=== PATIENT | male | born 1970 | race Two or more races ===

== ENCOUNTER 2023-02-25 14:04 | Inpatient (IN) | payer OTHER ==
[~2023-02-25] VITALS: Ht 185.4 cm; Wt 97.5 kg
[2023-02-25 17:02] LABS: MEAN CELL VOLUME 77.5 fL (80.0-100.00); PLATELET COUNT 516 K/uL (150-450); RED BLOOD COUNT 3.02 M/uL (4.00-6.00); RED CELL DISTRIBUTION WIDTH 19.9 % (11.5-14.5)
[2023-02-25 17:11] LABS: HEMATOCRIT 23.4 % (39.0-48.0); HEMOGLOBIN 7.7 g/dL (13-16.00); MEAN CORPUSCULAR HEMOGLOBIN 25.4 pg (27.00-32.0)
[2023-02-25 17:16] LABS: URINE APPEARANCE Clear; URINE BILIRRUBIN Negative (NEGATIVE); URINE BLOOD Negative; URINE COLOR Yellow; URINE GLUCOSE Negative (NEGATIVE); URINE LEUKOCYTE Negative; URINE NITRATE Negative; URINE PROTEIN Negative (NEGATIVE); URINE UROBILINOGEN 0.2 E.U./dl
[2023-02-25 17:17] LABS: INR 1.11; PARTIAL THROMBOPLASTIN TIME 28.1 SECONDS (22.0-34.0); PROTHROMBIN TIME 11.6 SECONDS (9.0-11.5)
[2023-02-25 17:22] LABS: CALCIUM 9.1 mg/dL (8.5-10.1); CREATININE SERUM 1.23 mg/dL (0.70-1.30); GFR 61.79; POTASSIUM 3.71 mEq/L (3.5-5.1)
[2023-02-25 17:23] LABS: URINE BACTERIA 2.5 uL (0.0-1933); URINE EPITHELIAL CELLS 1.3 uL (0.0-38.8); URINE RBC 1.5 uL (0.0-20.8)
[2023-02-25 23:54] LABS: PHOSPHOKINASE CREATININE 62 U/L (39-308)
[2023-02-25 23:55] LABS: CKMB < 1.0 NG/ML (0.5-3.6)
[2023-02-26 02:43] LABS: ABG PO2 107.8 mmHg (80-100); ABG pCO2 36.3 mmHg (35-45); BASE EXCESS 0.4 mmol/l; BICARBONATE 24.2 mmol/l (23-25); SaO2 98.4 %; Tco2 25.3 mmol/l
[2023-02-26 02:44] LABS: allen test SATISFACTORY; o2 21 %; puncture site RADIAL LEFT
[2023-02-26 20:18] LABS: HEMATOCRIT 27.7 % (39.0-48.0); HEMOGLOBIN 9.1 g/dL (13-16.00); HEMOGLOBIN 9.2 g/dL (13-16.00); MEAN CELL VOLUME 77.5 fL (80.0-100.00); MEAN CELL VOLUME 77.6 fL (80.0-100.00); MEAN CORPUSCULAR HEMOGLOBIN 25.1 pg (27.00-32.0); MEAN CORPUSCULAR HEMOGLOBIN 25.7 pg (27.00-32.0); MEAN CORPUSCULAR HGB CONC 32.4 g/dl (32.0-36.0); MEAN CORPUSCULAR HGB CONC 33.1 g/dl (32.0-36.0); PLATELET COUNT 456 K/uL (150-450); PLATELET COUNT 461 K/uL (150-450); RED BLOOD COUNT 3.57 M/uL (4.00-6.00); RED BLOOD COUNT 3.61 M/uL (4.00-6.00); RED CELL DISTRIBUTION WIDTH 18.6 % (11.5-14.5); RED CELL DISTRIBUTION WIDTH 18.7 % (11.5-14.5)
[2023-02-26 20:24] LABS: ERYTHROCYTE SEDIMENTATION RATE 10 mm/hr
[2023-02-26 20:33] LABS: INR 1.12; PARTIAL THROMBOPLASTIN TIME 29.8 SECONDS (22.0-34.0); PROTHROMBIN TIME 11.7 SECONDS (9.0-11.5)
[2023-02-26 20:42] LABS: ALBUMIN 4.1 gm/dL (3.4-5.0); BILIRUBIN TOTAL 0.77 mg/dL (0.3-1.2); BILIRUBIN,CONJUGATED 0.18 mg/dL (0.0-0.2); BILIRUBIN,UNCONJUGATED 0.59 mg/dL (0.0-0.6); CALCIUM 9.1 mg/dL (8.5-10.1); CHOL HDL RATIO 3.5 (0-5.0); CREATININE SERUM 1.22 mg/dL (0.70-1.30); GFR 62.38; POTASSIUM 4.49 mEq/L (3.5-5.1); TOTAL PROTEIN 7.1 gm/dL (6.4-8.2)
[2023-02-26 20:44] LABS: PHOSPHOKINASE CREATININE 56 U/L (39-308)
[2023-02-26 20:45] LABS: C-REACTIVE PROTEIN 0.31 MG/DL (0.00-0.29); CKMB < 1.0 NG/ML (0.5-3.6)
[2023-02-27 07:47] LABS: PHOSPHOKINASE CREATININE 48 U/L (39-308)
[2023-02-27 08:04] LABS: CKMB < 1.0 NG/ML (0.5-3.6)
[2023-02-27 08:15] LABS: URINE APPEARANCE Clear; URINE BILIRRUBIN Negative (NEGATIVE); URINE BLOOD Negative; URINE COLOR Yellow; URINE GLUCOSE Negative (NEGATIVE); URINE LEUKOCYTE Negative; URINE NITRATE Negative; URINE PROTEIN Negative (NEGATIVE); URINE UROBILINOGEN 0.2 E.U./dl
[2023-02-27 08:17] LABS: URINE BACTERIA 23.9 uL (0.0-1933); URINE EPITHELIAL CELLS 1.5 uL (0.0-38.8); URINE WBC 5.7 uL (0.0-23.2)
[2023-02-27 08:47] LABS: URINE RBC 0.2 uL (0.0-20.8)
[2023-02-27 11:33] LABS: ob POSITIVE (NEGATIVE)
[2023-02-28 01:14] LABS: HEMATOCRIT 28.8 % (39.0-48.0); HEMOGLOBIN 9.3 g/dL (13-16.00); MEAN CELL VOLUME 78.6 fL (80.0-100.00); MEAN CORPUSCULAR HEMOGLOBIN 25.5 pg (27.00-32.0); MEAN CORPUSCULAR HGB CONC 32.5 g/dl (32.0-36.0); PLATELET COUNT 417 K/uL (150-450); RED BLOOD COUNT 3.66 M/uL (4.00-6.00); RED CELL DISTRIBUTION WIDTH 18.6 % (11.5-14.5)
[2023-03-01 05:09] LABS: HEMATOCRIT 27.4 % (39.0-48.0); MEAN CELL VOLUME 78.3 fL (80.0-100.00); MEAN CORPUSCULAR HGB CONC 33.2 g/dl (32.0-36.0); PLATELET COUNT 387 K/uL (150-450); RED BLOOD COUNT 3.49 M/uL (4.00-6.00); RED CELL DISTRIBUTION WIDTH 19.8 % (11.5-14.5)
[2023-03-01 05:12] LABS: HEMOGLOBIN 9.1 g/dL (13-16.00)
== END 2023-03-01 14:29 | disposition home or self-care (01) | DRG 812 ==
LOC: ER 14:04 → MEDI 21:33
PROVIDERS: General Practice; Internal Medicine; ADMIT Internal Medicine; ATTEND Internal Medicine
PROC: 4A12X4Z Monitoring of Cardiac Electrical Activity, External Approach (ICD-10-PCS; principal; 2023-02-26)
PROC: 30233N1 Transfusion of Nonautologous Red Blood Cells into Peripheral Vein, Percutaneous Approach (ICD-10-PCS; 2023-02-26)
DX: D64.9 Anemia, unspecified (principal); K62.5 Hemorrhage of anus and rectum; K64.8 Other hemorrhoids; Z20.822 Contact with and (suspected) exposure to COVID-19

== ENCOUNTER 2023-03-31 09:20 | Emergency (ER) | payer OTHER ==
[~2023-03-31] VITALS: Ht 185.4 cm; Wt 96.2 kg
[2023-03-31 11:36] LABS: HEMATOCRIT 36.9 % (39.0-48.0); HEMOGLOBIN 12.3 g/dL (13-16.00); MEAN CELL VOLUME 81.3 fL (80.0-100.00); MEAN CORPUSCULAR HEMOGLOBIN 27.1 pg (27.00-32.0); MEAN CORPUSCULAR HGB CONC 33.3 g/dl (32.0-36.0); PLATELET COUNT 282 K/uL (150-450); RED BLOOD COUNT 4.54 M/uL (4.00-6.00)
[2023-03-31 11:47] LABS: PH,URINE 5.5 (5.0-8.0); URINE APPEARANCE Clear; URINE BILIRRUBIN Negative (NEGATIVE); URINE BLOOD Moderate; URINE COLOR Dark Yellow; URINE GLUCOSE Negative (NEGATIVE); URINE LEUKOCYTE Negative; URINE NITRATE Negative; URINE PROTEIN 30 (NEGATIVE); URINE UROBILINOGEN 0.2 E.U./dl
[2023-03-31 11:48] LABS: URINE BACTERIA 8.8 uL (0.0-1933); URINE RBC 29.3 uL (0.0-20.8); URINE WBC 8.1 uL (0.0-23.2)
[2023-03-31 11:55] LABS: CALCIUM 9.2 mg/dL (8.5-10.1); CREATININE SERUM 1.2 mg/dL (0.70-1.30); GFR 63.58; POTASSIUM 3.8 mEq/L (3.5-5.1)
== END 2023-03-31 16:17 | disposition home or self-care (01) ==
LOC: ER 09:21
PROVIDERS: Emergency Medicine
DX: Z98.890 Other specified postprocedural states (principal); Z87.19 Personal history of other diseases of the digestive system; Z20.822 Contact with and (suspected) exposure to COVID-19